=== PATIENT | female | born 2000 | race Hispanic/Latino ===

== ENCOUNTER 2022-03-14 17:37 | Emergency (ER) | payer OTHER, BC ==
[~2022-03-14] VITALS: Ht 157.5 cm; Wt 40.8 kg
[2022-03-14 17:43] VITALS: BP 133/90
[2022-03-14 19:00] LABS: APPEARANCE,URINE TURBID (CLEAR); BILIRUBIN,URINE NEGATIVE (NEGATIVE); GLUCOSE, URINE (UA) NEGATIVE (NEGATIVE); KETONES,URINE 40 mg/dL (NEGATIVE); LEUKOCYTE ESTERASE ,URINE NEGATIVE Leu/uL (NEGATIVE); NITRATE,URINE NEGATIVE (NEGATIVE); OCCULT BLOOD,URINE NEGATIVE (NEGATIVE); PH,URINE 7.5 (5.0-8.0); PROTEIN,URINE NEGATIVE (NEGATIVE); UROBILINOGEN,URINE 0.2 mg/dL (0.2-1.0)
[2022-03-14 19:03] LABS: HCG,QUALITATIVE URINE NEGATIVE (NEGATIVE)
[2022-03-14 19:12] LABS: BACTERIA,URINE RARE /HPF (None Seen); SQUAMOUS EPITHELIAL CELL,UR FEW /HPF (0-2)
[2022-03-14 19:14] LABS: COLOR,URINE YELLOW (YELLOW)
[2022-03-14] MEDS: PROCHLORPERAZINE 10MG/2ML INJ ONE (19:14)
[2022-03-14] MEDS: 0.9% NACL 500ML IV.SOLN 500 ML IV ONE (19:14)
[2022-03-14] MEDS: DiphenhydrAMINE HCL 50 MG/ML VIAL IV ONE (19:14)
[2022-03-14] MEDS: PROCHLORPERAZINE EDISYLATE 5 MG/ML 2 ML VIAL IVP ONE (19:15)
== END 2022-03-14 21:20 | disposition home or self-care (01) ==
LOC: EDH 17:37
DX: G43.909 Migraine, unspecified, not intractable, without status migrainosus (principal)
CPT/HCPCS: 99285; 96374; 70450; 96375; 87088; 81001; 81025; J7040; J1200; J0780